=== PATIENT | male | born 2000 | race Caucasian/White ===

== ENCOUNTER 2023-11-24 17:47 | Emergency (ER) | payer SELFPAY ==
[~2023-11-24] VITALS: Ht 165.1 cm; Wt 55.8 kg
[2023-11-24 18:06] VITALS: TEMP 97.9
[2023-11-24] MEDS ORDERED: PANTOPRAZOLE 40 MG VIAL ONE (18:24)
[2023-11-24] MEDS ORDERED: ONDANSETRON HCL/PF 4 MG/2 ML VIAL ONE (18:24)
[2023-11-24] MEDS ORDERED: KETOROLAC TROMETHAMINE INJ 30 MG/ML VIAL ONE (18:25)
[2023-11-24] MEDS: ONDANSETRON HCL/PF 4 MG/2 ML VIAL IVP ONE (18:36)
[2023-11-24] MEDS: PANTOPRAZOLE 40 MG VIAL IV ONE (18:36)
[2023-11-24] MEDS: KETOROLAC TROMETHAMINE 15 MG/ML VIAL IV ONE (18:36)
[2023-11-24 18:45] LABS: BASOPHILS % (AUTO) 0.3 % (0.0-2.0); EOSINOPHILS % (AUTO) 0.3 % (0.0-6.0); HEMATOCRIT 49 % (39-51); HEMOGLOBIN 15.7 g/dL (13.5-17.5); LYMPHOCYTES # (AUTO) 0.8 K/uL (0.8-4.8); LYMPHOCYTES % (AUTO) 5.4 % (20.0-44.0); MEAN CORPUSCULAR HEMOGLOBIN 27 PG (26.0-33.0); MEAN CORPUSCULAR HGB CONC 32 g/dl (31.0-36.0); MEAN CORPUSCULAR VOLUME 84 fL (80-96); MONOCYTES % (AUTO) 6.5 % (2.0-12.0); NEUTROPHILS # (AUTO) 13.5 K/uL (1.8-8.9); NEUTROPHILS % (AUTO) 87.5 % (43.0-81.0); PLATELET COUNT (AUTO) 233 K/uL (150-450); RED BLOOD CELL COUNT(AUTO) 5.82 MIL/uL (4.5-6.0); RED CELL DISTRIBUTION WIDTH 14.2 % (11.5-15.0); WHITE BLOOD COUNT (AUTO) 15.4 K/uL (4.3-11.0)
[2023-11-24] MEDS: IV NS 0.9% 1,000 ML BAG IV ONE ×2 (18:46→19:35)
[2023-11-24 18:54] LABS: CALCIUM, SERUM 10.3 mg/dL (8.5-10.1); CREATININE 1.1 mg/dL (0.6-1.3); POTASSIUM 3.9 mmol/L (3.5-5.1)
[2023-11-24 18:59] LABS: ALBUMIN 4.7 g/dL (3.4-5.0); BILIRUBIN,DIRECT 0.4 mg/dL (0.0-0.2); BILIRUBIN,TOTAL 2.4 mg/dL (0.2-1.0); TOTAL PROTEIN, SERUM 8.9 g/dL (6.4-8.2)
[2023-11-24 19:05] LABS: INR 0.99 (0.91-1.10); PROTHROMBIN TIME 10.5 SECS (9.2-11.1)
[2023-11-24] MEDS ORDERED: IV NS 0.9% 250 ML IV ONE (19:09)
[2023-11-24] MEDS ORDERED: CT SWABBABLE VALVE TRANS SET 1 EA INFUS.SET MC ONE (19:09)
[2023-11-24] MEDS ORDERED: IOHEXOL-300 100 ML VIAL IV ONE (19:09)
[2023-11-24 19:49] LABS: APPEARANCE,URINE CLEAR (CLEAR); BILIRUBIN,URINE 1+ (NEGATIVE); BLOOD, URINE NEGATIVE Ery/uL (NEGATIVE); COLOR,URINE YELLOW (YELLOW); KETONES,URINE 3+ mg/dL (NEGATIVE); LEUKOCYTE ESTERASE ,URINE NEGATIVE (NEGATIVE); NITRITE, URINE NEGATIVE (NEGATIVE); PROTEIN,URINE 1+ mg/dl (NEGATIVE); UGLUCOSE NEGATIVE (NEGATIVE); UROBILINOGEN,URINE 0.2 EU/dL (0.2)
[2023-11-24 20:03] LABS: ADD URINE CULTURE NO; BACTERIA,URINE None seen /HPF (None Seen); MUCUS,URINE Few /LPF (None Seen); RBC,URINE 0-2 /HPF (0-2); SQUAMOUS EPITHELIAL CELL,UR 0-2 /HPF (None Seen); WBC,URINE 0-2 /HPF (0-3)
[2023-11-24] MEDS ORDERED: IBUP-1953 PO (20:45)
[2023-11-24] MEDS ORDERED: ONDA4TAB5 PO (20:45)
[2023-11-24] MEDS ORDERED: AMOX-430 PO (20:45)
[2023-11-24 21:07] VITALS: BP 129/78; O2SAT 97
== END 2023-11-24 21:07 | disposition home or self-care (01) ==
LOC: ER 17:47
DX: R10.84 Generalized abdominal pain (principal); R19.7 Diarrhea, unspecified; R11.2 Nausea with vomiting, unspecified; R74.01 Elevation of levels of liver transaminase levels; Z60.2 Problems related to living alone
CPT/HCPCS: 99285; 96374; 96361; 96375; 74177; 85025; 80048; 83690; 80076; 81001; 36415; 85730; J1885; J2405; J7030; J7050; J2470; Q9967